=== PATIENT | female | born 1995 | race Caucasian/White ===

== ENCOUNTER 2017-10-27 16:12 | Inpatient (IN) ==
[2017-10-27] MEDS ORDERED: SODIUM CHLORIDE 0.9% 500 ML IV STA (17:56)
[2017-10-27] MEDS ORDERED: PROMETHAZINE INJ 25 MG in SODIUM CHLORIDE 0.9% 50 ML IV STA (17:56)
[2017-10-27] MEDS ORDERED: PROMETHAZINE 25 MG/1 ML VIAL ONE (18:01)
[2017-10-27 18:30] LABS: Basophils # 0.1 10*3/uL (0.0-0.2); Basophils % 0.3 % (0.0-0.8); Eosinophils % 0.1 % (0.00-10.9); Hematocrit 39.7 VOL% (35.7-47.0); Hemoglobin 13.4 GM/DL (12.0-16.0); Immature Granulocytes % 0.7 %; Lymphocytes # 2.7 10*3/uL (1.4-4.0); Lymphocytes % 17.2 % (21.3-54.2); Mean Corpuscular HGB Conc 33.8 GM/DL (32-36); Mean Corpuscular Hemoglobin 28 PG (27-34); Mean Corpuscular Volume 83.9 FL (87-102); Mean Platelet Volume 9.6 FL (9.6-12.0); Monocytes # 1.5 10*3/uL (0.11-0.8); Monocytes % 9.5 % (1.7-12.7); Neutrophils # 11.1 10*3/uL (1.4-7.4); Neutrophils % 72.2 % (38.7-73.9); Platelet Count 235 T/CUMM (130-400); Red Blood Count 4.73 MC/CUMM (3.8-5.5); Red Cell Distribution Width 12.4 % (9.3-17.3); White Blood Count 15.4 T/CUMM (4-12)
[2017-10-27 18:47] LABS: Albumin 3.4 G/DL (3.4-5.0); Bilirubin,Total 1.3 MG/DL (0.2-1.0); Calcium 8.5 MG/DL (8.5-10.1); Osmolality,Calculated 262.5 MOS/KG (273-304); Potassium 3.4 MMOL/L (3.5-5.1); Total Protein 7.3 G/DL (6.4-8.3)
[2017-10-27 18:47] LABS: Apearance,Urine Slightly Hazy (Clear); Bacteria,Urine Occasional /HPF (Few); Bilirubin,Urine Negative (Negative); Blood, Urine Large mg/dL (Negative); Glucose,Urine (UA) Negative (Negative); Ketones,Urine Negative (Negative); Mucus,Urine Few /LPF (Occasional); Nitrite,Urine Negative (Negative); Protein,Urine 100 MG/DL; RBC,Urine 6 /HPF (0-4); Squamous Epithelial Cell,Urine Occasional /HPF (0-10); Urine Color Amber (Yellow); WBC,Urine 77 /HPF (0-6)
[2017-10-27] MEDS ORDERED: ACETAMINOPHEN 325 MG TABLET PO PRN (20:28)
[2017-10-27] MEDS ORDERED: MORPHINE 2 MG/1 ML SYRINGE IV PRN (20:28)
[2017-10-27] MEDS ORDERED: ONDANSETRON 4 MG/2 ML VIAL IV PRN (20:28)
[2017-10-27] MEDS: LACTATED RINGERS 1,000 ML IV SCH (22:28)
[2017-10-27] MEDS: cefOXitin 2,000 MG in SYRINGE 1 EACH IV SCH (22:50)
[2017-10-28 00:40] LABS: Basophils % 0.2 % (0.0-0.8); Eosinophils % 0.1 % (0.00-10.9); Hematocrit 34.7 VOL% (35.7-47.0); Hemoglobin 11.8 GM/DL (12.0-16.0); Immature Granulocytes % 1.3 %; Immature Granulocytes Absolute 0.16 #; Lymphocytes # 2.7 10*3/uL (1.4-4.0); Lymphocytes % 22.3 % (21.3-54.2); Mean Corpuscular Hemoglobin 28 PG (27-34); Mean Corpuscular Volume 83.6 FL (87-102); Mean Platelet Volume 9.8 FL (9.6-12.0); Monocytes # 1.1 10*3/uL (0.11-0.8); Monocytes % 9.2 % (1.7-12.7); Neutrophils # 8.1 10*3/uL (1.4-7.4); Neutrophils % 66.9 % (38.7-73.9); Platelet Count 216 T/CUMM (130-400); Red Blood Count 4.15 MC/CUMM (3.8-5.5); Red Cell Distribution Width 12.4 % (9.3-17.3); White Blood Count 12.1 T/CUMM (4-12)
[2017-10-28 02:25] LABS: Platelet Estimate Normal
[2017-10-28] MEDS: cefOXitin 2,000 MG in SYRINGE 1 EACH IV SCH ×4 (05:17→21:58)
[2017-10-28] MEDS: LACTATED RINGERS 1,000 ML IV SCH ×3 (06:55→20:25)
[2017-10-28] MEDS ORDERED: BUPIVACAINE 0.25% 50 ML VIAL ONE (07:33)
[2017-10-28] MEDS ORDERED: ONDANSETRON 4 MG/2 ML VIAL IV PRN (09:18)
[2017-10-28] MEDS ORDERED: HYDROmorphone 2 MG/1 ML VIAL IV PRN (09:18)
[2017-10-28] MEDS ORDERED: DESFLURANE 1 UNIT/15 MINUTE INH ONE (10:26)
[2017-10-28] MEDS ORDERED: SEVOFLURANE 1 UNIT/15 MINUTE INH ONE (10:26)
[2017-10-28] MEDS ORDERED: fentaNYL 100 MCG/2 ML VIAL ONE (10:26)
[2017-10-28] MEDS ORDERED: MIDAZOLAM 2 MG/2 ML VIAL ONE (10:26)
[2017-10-28] MEDS ORDERED: PROPOFOL 200 MG/20 ML VIAL IV ONE (10:26)
[2017-10-28] MEDS ORDERED: KETOROLAC 30 MG/1 ML VIAL ONE (10:27)
[2017-10-28] MEDS ORDERED: ONDANSETRON 4 MG/2 ML VIAL ONE (10:27)
[2017-10-28] MEDS ORDERED: GLYCOPYRROLATE 0.4 MG/2 ML VIAL ONE (10:27)
[2017-10-28] MEDS ORDERED: NEOSTIGMINE 10 MG/10 ML VIAL ONE (10:27)
[2017-10-28] MEDS ORDERED: ROCURONIUM 100 MG/10 ML VIAL IV ONE (10:28)
[2017-10-28] MEDS ORDERED: SUCCINYLCHOLINE 200 MG/10 ML VIAL ONE (10:28)
[2017-10-28] MEDS: PANTOPRAZOLE 40 MG TABLET PO SCH (10:38)
[2017-10-28] MEDS: ENOXAPARIN 40 MG/0.4 ML SYRINGE SUBCUT SCH (10:39)
[2017-10-29] MEDS: LACTATED RINGERS 1,000 ML IV SCH ×3 (04:25→21:50)
[2017-10-29] MEDS: cefOXitin 2,000 MG in SYRINGE 1 EACH IV SCH ×2 (04:30→09:42)
[2017-10-29] MEDS: PANTOPRAZOLE 40 MG TABLET PO SCH (09:42)
[2017-10-29] MEDS: ENOXAPARIN 40 MG/0.4 ML SYRINGE SUBCUT SCH (09:42)
[2017-10-29] MEDS ORDERED: LEVOFLOXACIN INJ 500 MG in PREMIX 1 EACH IV SCH (11:00)
[2017-10-30] MEDS: LACTATED RINGERS 1,000 ML IV SCH (05:50)
[2017-10-30 08:16] VITALS: BP 122/56
[2017-10-30] MEDS: PANTOPRAZOLE 40 MG TABLET PO SCH (08:54)
[2017-10-30] MEDS: ENOXAPARIN 40 MG/0.4 ML SYRINGE SUBCUT SCH (08:55)
[2017-10-30] MEDS ORDERED: TAMSULOSIN 0.4 MG CAPSULE PO SCH (09:00)
== END 2017-10-30 10:30 | disposition home or self-care (01) | DRG 854 ==
LOC: N.ED 16:12 → N.EDINP 20:28 → N.2E 22:08
PROVIDERS: ADMIT Surgery; ATTEND Surgery